=== PATIENT | male | born 1945 | race American Indian/Alaskan Native ===

== ENCOUNTER 2018-09-13 10:24 | Inpatient (IN) | payer MEDICARE, MEDICAID ==
[2018-09-13] MEDS ORDERED: Sodium Chloride 0.9% 500 ML IV ONE (10:54)
[2018-09-13 11:17] LABS: BASO % 0.7 % (0.0-2.0); EOS # 0.4 K/uL (0.0-0.7); EOS % 6.9 % (0.0-4.0); HEMOGLOBIN 14.5 g/dL (12.0-18.0); LYMPH # 1.2 K/uL (1.0-4.3); LYMPH % 18.4 % (20.0-40.0); MEAN CELL VOLUME 91.1 fL (80.0-94.0); MEAN CORPUSCULAR HEMOGLOBIN 30.4 pg (27.0-31.0); MEAN CORPUSCULAR HGB CONC 33.4 g/dL (33.0-37.0); MONO % 16.3 % (0.0-10.0); NEUT # 3.6 K/uL (1.8-7.0); NEUT % 57.7 % (50.0-75.0); RBC 4.76 Mil/uL (4.40-5.90); RED CELL DISTRIBUTION WIDTH 13.6 % (11.5-14.5); WHITE BLOOD COUNT 6.3 K/uL (4.8-10.8)
[2018-09-13 12:39] LABS: ALB/GLOB RATIO 0.9 (1.0-2.1); ALBUMIN 3.9 g/dL (3.5-5.0); BLOOD UREA NITROGEN 15 mg/dL (9-20); CALCIUM 8.7 mg/dl (8.6-10.4); GFR NON-AFRICAN AMERICAN > 60
[2018-09-13 12:45] LABS: ALT/SGPT 30 U/L (21-72); AST/SGOT 39 U/L (17-59)
--- NOTE | 2018-09-13 12:56 | C.PDOC ---
History Of Present Illness 73 y/o male presents to ED sent by correction for peg tube replacement. At ED patient is awake and alert but confused. HPI limited secondary to patient's clinical condition. Time Seen by Provider: 09/13/18 10:38 Chief Complaint (Nursing): GI Problem History Per: Other (longterm) History/Exam Limitations: clinical condition Onset/Duration Of Symptoms: Days Current Symptoms Are (Timing): Still Present Past Medical History Reviewed: Historical Data, Nursing Documentation, Vital Signs Vital Signs: Last Vital Signs Temp 98.1 F 09/13/18 10:31 Pulse 87 09/13/18 10:31 Resp 16 09/13/18 10:31 BP 117/82 09/13/18 10:31 Pulse Ox 99 09/13/18 10:31 - Medical History PMH: Dementia, Depression, HTN, Osteoporosis Surgical History: No Surg Hx Family History: States: No Known Family Hx - Social History Hx Alcohol Use: No Hx Substance Use: No - Immunization History Hx Tetanus Toxoid Vaccination: Yes Hx Influenza Vaccination: Yes Hx Pneumococcal Vaccination: No Review Of Systems Review Of Systems: ROS cannot be obtained secondary to pt's inabilty to answer questions. (patient confused) Physical Exam - Physical Exam Appears: Non-toxic, Confused Skin: Warm, Dry, No Rash Head: Atraumatic, Normacephalic Eye(s): bilateral: Normal Inspection Oral Mucosa: Dry Neck: Supple Cardiovascular: Rhythm Regular Respiratory: Normal Breath Sounds, No Rales, No Rhonchi, No Wheezing Gastrointestinal/Abdominal: Soft, No Tenderness, No Guarding, No Rebound, Other (obese abdomen, LUQ peg site stoma. No erythema or purulent discharge) Back: No CVA Tenderness Neurological/Psych: Other (confused, awake and alert moving all extremities spontaneously. ) ED Course And Treatment - Laboratory Results Result Diagrams: 09/13/18 11:14 09/13/18 12:10 O2 Sat by Pulse Oximetry: 99 (ra) Pulse Ox Interpretation: Normal Progress Note: IV fluids, UA administered. Disposition - Disposition Forms: [facility] (Armenian) - Scribe Statement The provider has reviewed the documentation as recorded by the Scribgeoffrey Lizama All medical record entries made by the Scribe were at my direction and personally dictated by me. I have reviewed the chart and agree that the record accurately reflects my personal performance of the history, physical exam, medical decision making, and the department course for this patient. I have also personally directed, reviewed, and agree with the discharge instructions and disposition.
--- NOTE | 2018-09-13 15:05 | CP.PCM.CON ---
<JackiealvickiJoaquin - Last Filed: 09/13/18 15:20> History of Present Illness - History of Present Illness History of Present Illness: GI Fellow PGY4, Consult note. Richard Matthew is a 73M, hx dementia and dysphagia s/p PEG, presenting from intermediate with PEG tube dislodgement. Patient is awake but very demented and poor source of history. He cannot tell me when or how the PEG tube was removed. There is no record of when it was last functional, when it was placed or by who it was placed. Patient is in no distress and does not appear uncomfortable. Attempted to call phone number provided, and no answer. PMHx - HTN, Parkinsons, constipation PSHx - PEG placement FMHx - unable to obtain SocHx - Unable to obtain. Unable to obtain due to dementia Past Patient History - Past Social History Smoking Status: Never Smoked - CARDIAC Hx Hypertension: Yes - NEUROLOGICAL Hx Dementia: Yes - MUSCULOSKELETAL/RHEUMATOLOGICAL Hx Osteoporosis: Yes - PSYCHIATRIC Hx Depression: Yes Hx Substance Use: No - SURGICAL HISTORY Hx Surgeries: Yes Other/Comment: PEG - ANESTHESIA Hx Anesthesia: Yes Hx Anesthesia Reactions: No Meds Allergies/Adverse Reactions: Allergies Allergy/AdvReac Type Severity Reaction Status Date / Time No Known Allergies Allergy Verified 09/13/18 10:36 Physical Exam - Constitutional Appears: Non-toxic, No Acute Distress, Unkempt, Confused - Head Exam Head Exam: ATRAUMATIC. absent: NORMAL INSPECTION - Eye Exam Eye Exam: EOMI, Normal appearance - ENT Exam ENT Exam: Mucous Membranes Moist, Normal Exam - Respiratory Exam Respiratory Exam: Clear to Auscultation Bilateral, NORMAL BREATHING PATTERN. absent: Wheezes - Cardiovascular Exam Cardiovascular Exam: REGULAR RHYTHM, +S1, +S2 - GI/Abdominal Exam GI & Abdominal Exam: Distended, Firm, Normal Bowel Sounds, Soft. absent: Tenderness Additional comments: LUQ abdominal PEG site that is non-purulent, non-erythematous. Tract appears closed. Attempted to place new G-tube and unsuccessful. - Neurological Exam Neurological exam: Altered, CN II-XII Intact - Psychiatric Exam Psychiatric exam: Normal Affect, Normal Mood - Skin Skin Exam: Dry, Normal Color Results - Vital Signs Recent Vital Signs: Last Vital Signs Temp 98.1 F 09/13/18 10:31 Pulse 87 09/13/18 10:31 Resp 16 11/29/18 10:31 BP 117/82 09/13/18 10:31 Pulse Ox 99 09/13/18 13:02 - Labs Result Diagrams: 09/13/18 11:14 09/13/18 12:10 Labs: Laboratory Results - last 24 hr 09/13/18 09/13/18 11:14 12:10 WBC 6.3 RBC 4.76 Hgb 14.5 Hct 43.3 MCV 91.1 MCH 30.4 MCHC 33.4 RDW 13.6 Plt Count 252 MPV 9.0 Neut % (Auto) 57.7 Lymph % (Auto) 18.4 L [place] % (Auto) 16.3 H Eos % (Auto) 6.9 H Baso % (Auto) 0.7 Neut # (Auto) 3.6 Lymph # (Auto) 1.2 [place] # (Auto) 1.0 H Eos # (Auto) 0.4 Baso # (Auto) 0.0 Sodium 137 Potassium 4.2 Chloride 100 Carbon Dioxide 29 Anion Gap 14 BUN 15 Creatinine 0.5 L Est GFR ( Amer) > 60 Est GFR (Non-Af Amer) > 60 Random Glucose 115 H Calcium 8.7 Total Bilirubin 0.6 AST 39 ALT 30 Alkaline Phosphatase 128 H Total Protein 7.9 Albumin 3.9 Globulin 4.1 H Albumin/Globulin Ratio 0.9 L Assessment & Plan - Assessment and Plan (Free Text) Assessment: #PEG tube dislodgement #Presumed Parkinsons (based on home meds) #HTN #Dementia PLAN: -Check CT of abd/pelv -Obtain INR -Replacement of G-tube attempted, but unsuccessful. Tract appears to be closed. -Hold all anticoagulation -Will attempt to contact POA/Family again tomorrow. -Possible PEG tube placement tomorrow, ideally. -NPO - Date & Time Date: 09/13/18 Time: 15:08 <Joshua Joshi - Last Filed: 09/13/18 18:39> Results - Vital Signs Recent Vital Signs: Last Vital Signs Temp 99.2 F 09/13/18 16:50 Pulse 93 H 09/13/18 16:50 Resp 20 09/13/18 16:50 BP 127/72 09/13/18 16:50 Pulse Ox 96 09/13/18 16:50 - Labs Result Diagrams: 09/13/18 11:14 09/13/18 12:10 Labs: Laboratory Results - last 24 hr 09/13/18 09/13/18 09/13/18 11:14 12:10 15:55 WBC 6.3 RBC 4.76 Hgb 14.5 Hct 43.3 MCV 91.1 MCH 30.4 MCHC 33.4 RDW 13.6 Plt Count 252 MPV 9.0 Neut % (Auto) 57.7 Lymph % (Auto) 18.4 L [place] % (Auto) 16.3 H Eos % (Auto) 6.9 H Baso % (Auto) 0.7 Neut # (Auto) 3.6 Lymph # (Auto) 1.2 [place] # (Auto) 1.0 H Eos # (Auto) 0.4 Baso # (Auto) 0.0 PT 13.0 H INR 1.2 Sodium 137 Potassium 4.2 Chloride 100 Carbon Dioxide 29 Anion Gap 14 BUN 15 Creatinine 0.5 L Est GFR ( Amer) > 60 Est GFR (Non-Af Amer) > 60 Random Glucose 115 H Calcium 8.7 Total Bilirubin 0.6 AST 39 ALT 30 Alkaline Phosphatase 128 H Total Protein 7.9 Albumin 3.9 Globulin 4.1 H Albumin/Globulin Ratio 0.9 L Attending/Attestation - Attestation I have personally seen and examined this patient.: Yes I have fully participated in the care of the patient.: Yes I have reviewed all pertinent clinical information: Yes Notes (Text): 09/13/18 18:33 I have seen and examined patient with GI fellow. Agree with above documentation with the following additions. In brief, this is a 73 year old male with history of dementia, HTN, Parkison's, VISUAL INSPECTOR shunt placement, dysphagia s/p gastrostomy tube placement who is sent from intermediate for feeding tube dislodgment. Patient is unable to participate in meaningful conversation due to underlying dementia, additional information obtained via chart review, discussion with nursing staff and patient family member. Unclear regarding timing of initial tube placement, however tube became dislodged yesterday and patient sent to hospital for further management. There is no reported abdominal pain, nausea, vomiting, fever/chills, or change in bowel habits. Apparently patient is typically constipated and has infrequent bowel movements requiring laxative use. Review of systems not available due to underlying patient dementia Additional physical examination: Abdomen: no palpable hepato/splenomegaly HTN Parkinson's Dementia VISUAL INSPECTOR shunt placement Chronic constipation Dysphagia s/p PEG with recent dislodgment - NPO - Continue with IVF hydration, supportive care - CT imaging shows significant fecal retention, suggest use of mineral oil and tap water enemas - Will need to discuss carefully with patient's family member regarding risks/benefits of repeat endoscopic feeding tube placement, if agreeable will tentatively plan for procedure tomorrow. Will continue to monitor patient clinical course.
[2018-09-13] MEDS ORDERED: Mineral Oil Enema 135 ml RC ONE ×2 (15:48→18:00)
--- NOTE | 2018-09-13 16:03 | CT ---
PROCEDURE: CT Abdomen and Pelvis without Oral or IV contrast. HISTORY: abdominal distension, PEG tube dislodged COMPARISON: None available. TECHNIQUE: Contiguous axial images of the abdomen and pelvis. No oral or IV contrast administered. Coronal and Sagittal reformats generated and reviewed. Radiation dose: Total exam DLP = 1289.53 mGy-cm. This CT exam was performed using one or more of the following dose reduction techniques: Automated exposure control, adjustment of the mA and/or kV according to patient size, and/or use of iterative reconstruction technique. FINDINGS: There is limited evaluation of the solid organs without the administration of IV contrast. LOWER THORAX: Mild bibasilar atelectasis. There is no visible pleural effusion or pneumothorax. 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 Dense coronary artery calcifications. LIVER: Unremarkable unenhanced appearance. GALLBLADDER AND BILE DUCTS: Unremarkable unenhanced appearance. PANCREAS: Fatty atrophy. SPLEEN: Unremarkable unenhanced appearance. ADRENALS: Bilateral nodular adrenal gland hyperplasia. KIDNEYS AND URETERS: No hydronephrosis or obstructing renal calculus. 2.5 x 2.6 cm left adrenal gland hypodense mass measures approximately 11 HU consistent with cyst. Bilateral lobulated kidneys. BLADDER: The urinary bladder appears unremarkable. REPRODUCTIVE: Prostate gland measures approximately 3.6 x 3.9 cm. APPENDIX: The appendix appears within normal limits of caliber. No secondary signs of acute appendicitis. BOWEL: The stomach is nondistended. Lack of oral contrast limits evaluation for bowel pathology. The bowel loops appear within normal limits of caliber without evidence of intestinal obstruction. Diverticulosis without CT evidence of acute diverticulitis. Diffuse constipation with evidence of rectal impaction. PERITONEUM: No significant free fluid. No definite free air. LYMPH NODES: No bulky lymphadenopathy identified. VASCULATURE: Atherosclerotic calcifications of the aorta and branches. No aortic aneurysm. BONES: Diffuse osseous demineralization. Extensive degenerative changes. OTHER FINDINGS: Tubing is identified within the subcutaneous soft tissues of the mid to right lower chest extending inferiorly entering the abdomen with termination in the mid lower abdomen. IMPRESSION: Tubing is identified within the subcutaneous soft tissues of the mid to right lower chest extending inferiorly entering the abdomen with termination in the mid lower abdomen. Diffuse constipation with evidence of rectal impaction. Diverticulosis without CT evidence of acute diverticulitis. Bilateral adrenal gland hypertrophy. Left upper pole renal cyst. 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 Additional findings as above.
[2018-09-13 16:12] LABS: INR 1.2
[2018-09-13] MEDS: Dextrose 5%/0.45% NS 1,000 ML IV SCH (21:28)
--- NOTE | 2018-09-13 21:36 | CP.PCM.HP ---
Present on Admission - Present on Admission Any Indicators Present on Admission: No Past Patient History - Past Medical History & Family History Past Medical History?: Yes - Past Social History Smoking Status: Never Smoked - CARDIAC Hx Hypertension: Yes - NEUROLOGICAL Hx Dementia: Yes - MUSCULOSKELETAL/RHEUMATOLOGICAL Hx Osteoporosis: Yes - PSYCHIATRIC Hx Depression: Yes Hx Substance Use: No - SURGICAL HISTORY Hx Surgeries: Yes Other/Comment: PEG - ANESTHESIA Hx Anesthesia: Yes Hx Anesthesia Reactions: No Meds Allergies/Adverse Reactions: Allergies Allergy/AdvReac Type Severity Reaction Status Date / Time No Known Allergies Allergy Verified 09/13/18 10:36 Physical Exam - Constitutional Appears: Well - Head Exam Head Exam: ATRAUMATIC, NORMAL INSPECTION, NORMOCEPHALIC - Eye Exam Eye Exam: EOMI, Normal appearance, PERRL Pupil Exam: NORMAL ACCOMODATION, PERRL - ENT Exam ENT Exam: Mucous Membranes Moist, Normal Exam - Neck Exam Neck exam: Positive for: Normal Inspection - Respiratory Exam Respiratory Exam: Decreased Breath Sounds - Cardiovascular Exam Cardiovascular Exam: REGULAR RHYTHM, +S1, +S2 - GI/Abdominal Exam GI & Abdominal Exam: Diminished Bowel Sounds, Soft - Rectal Exam Rectal Exam: Deferred Results - Vital Signs Recent Vital Signs: Last Vital Signs Temp 99.2 F 09/13/18 16:50 Pulse 93 H 09/13/18 16:50 Resp 20 09/13/18 16:50 BP 127/72 09/13/18 16:50 Pulse Ox 96 09/13/18 16:50 - Labs Result Diagrams: 09/13/18 11:14 09/13/18 12:10 Labs: Laboratory Results - last 24 hr 09/13/18 09/13/18 09/13/18 11:14 12:10 15:55 WBC 6.3 RBC 4.76 Hgb 14.5 Hct 43.3 MCV 91.1 MCH 30.4 MCHC 33.4 RDW 13.6 Plt Count 252 MPV 9.0 Neut % (Auto) 57.7 Lymph % (Auto) 18.4 L [place] % (Auto) 16.3 H Eos % (Auto) 6.9 H Baso % (Auto) 0.7 Neut # (Auto) 3.6 Lymph # (Auto) 1.2 [place] # (Auto) 1.0 H Eos # (Auto) 0.4 Baso # (Auto) 0.0 PT 13.0 H INR 1.2 Sodium 137 Potassium 4.2 Chloride 100 Carbon Dioxide 29 Anion Gap 14 BUN 15 Creatinine 0.5 L Est GFR ( Amer) > 60 Est GFR (Non-Af Amer) > 60 Random Glucose 115 H Calcium 8.7 Total Bilirubin 0.6 AST 39 ALT 30 Alkaline Phosphatase 128 H Total Protein 7.9 Albumin 3.9 Globulin 4.1 H Albumin/Globulin Ratio 0.9 L Assessment & Plan - Assessment and Plan (Free Text) Plan: Patient was brought to hospital because of a PEG tube replacement For tomorrow We will hold the p.o. medications although will give up at least We will hold anticoagulations History because of dementia Vital signs stable CBC stable CMP stable For possible PEG tomorrow As ordered N.p.o. IV fluid
[2018-09-13] MEDS ORDERED: CYCLOSPORINE OP SCH (22:00)
[2018-09-14] MEDS: Dextrose 5%/0.45% NS 1,000 ML IV SCH (09:36)
[2018-09-14] MEDS ORDERED: ceFAZolin IV 2 gm in Dextrose 2 GM/50 ML BAG IVPB STA (10:30)
[2018-09-14] MEDS ORDERED: ceFAZolin IV 1 gm in Dextrose 1 GM/50 ML BAG IVPB ONE (10:33)
[2018-09-14] MEDS ORDERED: Phenylephrine 10 mg/ml Inj ONE (10:48)
[2018-09-14] MEDS ORDERED: Propofol 10 mg/ml Inj (20 ML) ONE (10:48)
[2018-09-14 16:18] VITALS: RESP 20
--- NOTE | 2018-09-14 20:13 | CP.PCM.PN ---
Subjective - Date & Time of Evaluation Date of Evaluation: 09/14/18 Time of Evaluation: 07:30 - Subjective Subjective: clinically same Objective - Vital Signs/Intake and Output Vital Signs (last 24 hours): Temp Pulse Resp BP Pulse Ox 99.8 F H 92 H 20 136/87 95 09/14/18 15:08 09/14/18 15:08 09/14/18 15:08 09/14/18 15:08 09/14/18 15:08 Intake and Output: 09/14/18 09/15/18 18:59 06:59 Intake Total 1030 Balance 1030 - Medications Medications: Current Medications Home Med (Cyclosporine [Restasis]) 1 each OP Q12 [facility] Dextrose/Sodium Chloride (Dextrose 5%/0.45% Ns 1000 Ml) 1,000 mls @ 75 mls/hr IV .[id number] [facility] Last Admin: 09/14/18 09:36 Dose: 75 mls/hr Neomycin/Polymyxin/Bacitracin (Neosporin Triple Antibiotic Oint) 1 gm TOP ONCE ONE Stop: 09/15/18 07:01 Pantoprazole Sodium (Protonix Inj) 40 mg IVP DAILY [facility] Last Admin: 09/14/18 09:35 Dose: 40 mg Rivastigmine (Exelon 4.6 Mg/24 Hr Patch) 1 patch TD DAILY [facility] Last Admin: 09/14/18 09:35 Dose: 1 patch - Labs Labs: 09/13/18 11:14 09/13/18 12:10 PT 13.0 SECONDS (9.7-12.2) H 09/13/18 15:55 INR 1.2 09/13/18 15:55 - Constitutional Appears: Well - Head Exam Head Exam: ATRAUMATIC, NORMAL INSPECTION, NORMOCEPHALIC - Eye Exam Eye Exam: EOMI, Normal appearance, PERRL Pupil Exam: NORMAL ACCOMODATION, PERRL - ENT Exam ENT Exam: Mucous Membranes Moist, Normal Exam - Neck Exam Neck Exam: Full ROM, Normal Inspection. absent: Lymphadenopathy - Respiratory Exam Respiratory Exam: Decreased Breath Sounds - Cardiovascular Exam Cardiovascular Exam: REGULAR RHYTHM, +S1, +S2 - GI/Abdominal Exam GI & Abdominal Exam: Soft, Diminished Bowel Sounds - Rectal Exam Rectal Exam: Deferred
[2018-09-15] MEDS ORDERED: Bacitracin/Neomycin/Polymyxin Oint(30GM) TOP ONE (07:00)
--- NOTE | 2018-09-15 09:20 | CP.PCM.PCO ---
Physician Communication Note - Physician Communication Note Physician Communication Note: PEG site clean/dry, bumper loosened. May begin tube feeding as necessary.
--- NOTE | 2018-09-15 14:54 | CT ---
CT abdomen and pelvis HISTORY: Check G-tube placement. Comparison: CT dated 09/13/2018 Technique: Multiple contiguous axial images were performed through the abdomen and pelvis without the use of intravenous contrast. Subsequently, sagittal and coronal reformatted images were obtained. This CT exam was performed using one or more of the following dose reduction techniques: Automated exposure control, adjustment of the mA and/or kV according to patient size, and/or use of iterative reconstruction technique. Findings: Interval placement of a gastrostomy tube with bumper extending into the body of the stomach. This is best seen on series 2, image 34. Intra-abdominal catheter tubing extending to the midline lower abdomen. Atherosclerotic calcification and plaque within the visualized aorta. 2.3 centimeter low-attenuation lesion at the upper pole of the left kidney demonstrating a Hounsfield unit attenuation of 6 suggestive for a cyst. Nodular thickening of the bilateral adrenal glands. Atherosclerotic calcification and plaque within the aorta. Distended urinary bladder. Heterogeneous prostate with calcifications. Rectal wall thickening. Stool in the rectal vault. Moderate fecal retention in the right hemicolon. Appendix not well visualized. Liver and gallbladder are preserved. Spleen is preserved. Mild fatty atrophy of the pancreas. Degenerative changes in the spine. Deformity of the left hip and proximal femur. Scattered areas of atelectasis and consolidation at the lung bases. Coronary calcifications. Impression: Interval placement of a gastrostomy tube with bumper seen within the body of the stomach. Additional findings as above
[2018-09-15] MEDS: Dextrose 5%/0.45% NS 1,000 ML IV SCH ×2 (17:58→17:59)
--- NOTE | 2018-09-15 20:05 | CP.PCM.PN ---
Subjective - Date & Time of Evaluation Date of Evaluation: 09/15/18 Time of Evaluation: 07:30 - Subjective Subjective: clinically same Objective - Vital Signs/Intake and Output Vital Signs (last 24 hours): Temp Pulse Resp BP Pulse Ox 99.1 F 96 H 20 119/84 99 09/15/18 16:00 09/15/18 16:00 09/15/18 16:00 09/15/18 16:00 09/15/18 16:00 Intake and Output: 09/15/18 09/16/18 18:59 06:59 Intake Total 745 Balance 745 - Medications Medications: Current Medications Home Med (Cyclosporine [Restasis]) 1 each OP Q12 [facility] Dextrose/Sodium Chloride (Dextrose 5%/0.45% Ns 1000 Ml) 1,000 mls @ 75 mls/hr IV .[id number] [facility] Last Admin: 09/15/18 17:59 Dose: 75 mls/hr Pantoprazole Sodium (Protonix Inj) 40 mg IVP DAILY [facility] Last Admin: 09/15/18 10:53 Dose: 40 mg Rivastigmine (Exelon 4.6 Mg/24 Hr Patch) 1 patch TD DAILY [facility] Last Admin: 09/15/18 10:53 Dose: 1 patch - Labs Labs: 09/13/18 11:14 09/13/18 12:10 PT 13.0 SECONDS (9.7-12.2) H 09/13/18 15:55 INR 1.2 09/13/18 15:55 - Constitutional Appears: Well - Head Exam Head Exam: ATRAUMATIC, NORMAL INSPECTION, NORMOCEPHALIC - Eye Exam Eye Exam: EOMI, Normal appearance, PERRL Pupil Exam: NORMAL ACCOMODATION, PERRL - ENT Exam ENT Exam: Mucous Membranes Moist, Normal Exam - Neck Exam Neck Exam: Full ROM, Normal Inspection. absent: Lymphadenopathy - Respiratory Exam Respiratory Exam: Decreased Breath Sounds - Cardiovascular Exam Cardiovascular Exam: REGULAR RHYTHM, +S1, +S2 - GI/Abdominal Exam GI & Abdominal Exam: Soft, Diminished Bowel Sounds - Rectal Exam Rectal Exam: Deferred
--- NOTE | 2018-09-16 12:56 | CP.PCM.PN ---
Subjective - Date & Time of Evaluation Date of Evaluation: 09/16/18 Time of Evaluation: 07:30 - Subjective Subjective: clinically same Objective - Vital Signs/Intake and Output Vital Signs (last 24 hours): Temp Pulse Resp BP Pulse Ox 99.1 F 91 H 20 117/80 99 09/16/18 08:23 09/16/18 08:23 09/16/18 08:23 09/16/18 08:23 09/16/18 08:23 Intake and Output: 09/16/18 09/16/18 06:59 18:59 Intake Total 1855 Balance 1855 - Medications Medications: Current Medications Home Med (Cyclosporine [Restasis]) 1 each OP Q12 [facility] Dextrose/Sodium Chloride (Dextrose 5%/0.45% Ns 1000 Ml) 1,000 mls @ 75 mls/hr IV .[id number] [facility] Last Admin: 09/15/18 17:59 Dose: 75 mls/hr Pantoprazole Sodium (Protonix Inj) 40 mg IVP DAILY [facility] Last Admin: 09/16/18 09:39 Dose: 40 mg Rivastigmine (Exelon 4.6 Mg/24 Hr Patch) 1 patch TD DAILY [facility] Last Admin: 09/16/18 09:39 Dose: 1 patch - Labs Labs: 09/13/18 11:14 09/13/18 12:10 PT 13.0 SECONDS (9.7-12.2) H 09/13/18 15:55 INR 1.2 09/13/18 15:55 - Constitutional Appears: Well - Head Exam Head Exam: ATRAUMATIC, NORMAL INSPECTION, NORMOCEPHALIC - Eye Exam Eye Exam: EOMI, Normal appearance, PERRL Pupil Exam: NORMAL ACCOMODATION, PERRL - ENT Exam ENT Exam: Mucous Membranes Moist, Normal Exam - Neck Exam Neck Exam: Full ROM, Normal Inspection. absent: Lymphadenopathy - Respiratory Exam Respiratory Exam: Decreased Breath Sounds - Cardiovascular Exam Cardiovascular Exam: REGULAR RHYTHM, +S1, +S2 - GI/Abdominal Exam GI & Abdominal Exam: Soft, Diminished Bowel Sounds - Rectal Exam Rectal Exam: Deferred
[2018-09-16 20:21] LABS: BASO % 0.5 % (0.0-2.0); EOS # 0.4 K/uL (0.0-0.7); EOS % 4.5 % (0.0-4.0); LYMPH # 1.3 K/uL (1.0-4.3); MEAN CELL VOLUME 90.5 fL (80.0-94.0); MEAN CORPUSCULAR HEMOGLOBIN 30.3 pg (27.0-31.0); MEAN CORPUSCULAR HGB CONC 33.4 g/dL (33.0-37.0); MEAN PLATELET VOLUME 8.9 fL (7.2-11.7); MONO # 1.6 K/uL (0.0-0.8); MONO % 19.7 % (0.0-10.0); NEUT # 4.8 K/uL (1.8-7.0); NEUT % 59.3 % (50.0-75.0); NRBC % 0.1 % (0.0-2.0); RBC 3.97 Mil/uL (4.40-5.90); RED CELL DISTRIBUTION WIDTH 13.1 % (11.5-14.5); WHITE BLOOD COUNT 8.1 K/uL (4.8-10.8)
[2018-09-16 20:36] LABS: ALB/GLOB RATIO 0.9 (1.0-2.1); ALBUMIN 3.6 g/dL (3.5-5.0); ALT/SGPT 10 U/L (21-72); AST/SGOT 51 U/L (17-59); BLOOD UREA NITROGEN 7 mg/dL (9-20); CALCIUM 8.2 mg/dl (8.6-10.4); GFR NON-AFRICAN AMERICAN > 60
[2018-09-17 08:22] VITALS: BP 121/77; PULSE 100; TEMP 99.7; O2SAT 97
[2018-09-17 11:11] LABS: BASO % 0.5 % (0.0-2.0); EOS # 0.4 K/uL (0.0-0.7); EOS % 5.5 % (0.0-4.0); HEMOGLOBIN 12.4 g/dL (12.0-18.0); LYMPH # 1.1 K/uL (1.0-4.3); LYMPH % 15.2 % (20.0-40.0); MEAN CELL VOLUME 90.9 fL (80.0-94.0); MEAN CORPUSCULAR HEMOGLOBIN 30.5 pg (27.0-31.0); MEAN CORPUSCULAR HGB CONC 33.5 g/dL (33.0-37.0); MEAN PLATELET VOLUME 8.8 fL (7.2-11.7); MONO # 1.4 K/uL (0.0-0.8); MONO % 19.8 % (0.0-10.0); NEUT # 4.3 K/uL (1.8-7.0); RBC 4.08 Mil/uL (4.40-5.90); WHITE BLOOD COUNT 7.2 K/uL (4.8-10.8)
[2018-09-17 11:51] LABS: ALBUMIN 3.4 g/dL (3.5-5.0); ALT/SGPT 19 U/L (21-72); AST/SGOT 19 U/L (17-59); BLOOD UREA NITROGEN 6 mg/dL (9-20); CALCIUM 8.5 mg/dl (8.6-10.4); GFR NON-AFRICAN AMERICAN > 60
--- NOTE | 2018-09-17 14:20 | CP.PCM.PN ---
Subjective - Date & Time of Evaluation Date of Evaluation: 09/17/18 Time of Evaluation: 07:30 - Subjective Subjective: clinically same Objective - Vital Signs/Intake and Output Vital Signs (last 24 hours): Temp Pulse Resp BP Pulse Ox 99.7 F H 100 H 20 121/77 97 09/17/18 08:21 09/17/18 08:21 09/17/18 08:21 09/17/18 08:21 09/17/18 08:21 - Medications Medications: Current Medications Home Med (Cyclosporine [Restasis]) 1 each OP Q12 [facility] Pantoprazole Sodium (Protonix Inj) 40 mg IVP DAILY [facility] Last Admin: 09/17/18 11:10 Dose: 40 mg Rivastigmine (Exelon 4.6 Mg/24 Hr Patch) 1 patch TD DAILY [facility] Last Admin: 09/17/18 11:10 Dose: 1 patch - Labs Labs: 09/17/18 11:02 09/17/18 11:02 PT 13.0 SECONDS (9.7-12.2) H 09/13/18 15:55 INR 1.2 09/13/18 15:55
--- NOTE | 2018-09-17 17:42 | CP.PCM.PN ---
Subjective - Date & Time of Evaluation Date of Evaluation: 09/17/18 Time of Evaluation: 11:00 Objective - Vital Signs/Intake and Output Vital Signs (last 24 hours): Temp Pulse Resp BP Pulse Ox 99.7 F H 100 H 20 121/77 97 09/17/18 08:21 09/17/18 08:21 09/17/18 08:21 09/17/18 08:21 09/17/18 08:21 - Labs Labs: 09/17/18 11:02 09/17/18 11:02 PT 13.0 SECONDS (9.7-12.2) H 09/13/18 15:55 INR 1.2 09/13/18 15:55 Assessment and Plan - Assessment and Plan (Free Text) Assessment: 73 year old male admitted from [facility] for PEG tube replacement, seen and examined. patient in vegetated state, PEG tube was replaced and is working well. Discussed with DR Ene Ariza, plan to discharge back to the halfway today. Advised to keep the PEG site dry and clean, change dressing daily.
== END 2018-09-17 15:24 | DRG 395 ==
LOC: C.ER 10:24 → C.9E 12:57 → C.3T 15:29
PROVIDERS: ADMIT Internal Medicine Nephrology; ATTEND Internal Medicine Nephrology
PROC: 0D20XUZ Change Feeding Device in Upper Intestinal Tract, External Approach (ICD-10-PCS; principal; 2018-09-14 10:47)
DX: Z43.1 Encounter for attention to gastrostomy (principal); R13.10 Dysphagia, unspecified; K59.09 Other constipation; I10 Essential (primary) hypertension; G20 Parkinson's disease; F03.90 Unspecified dementia, unspecified severity, without behavioral disturbance, psychotic disturbance, mood disturbance, and anxiety